=== PATIENT | female | born 1955 | race Caucasian/White ===

== ENCOUNTER 2025-02-26 08:28 | Outpatient (CLI) | payer MEDICARE, MEDICAID, SELFPAY | END 2025-02-26 08:29 | disposition home or self-care (01) | LOC: AMB 02-27 10:28 | PROVIDERS: Visit Provider Student in an Organized Health Care Education/Training Program | DX: S99.911A Unspecified injury of right ankle, initial encounter (principal); W10.9XXA Fall (on) (from) unspecified stairs and steps, initial encounter; Y92.008 Other place in unspecified non-institutional (private) residence as the place of occurrence of the external cause | CPT/HCPCS: A0425; A0429 ==

== ENCOUNTER 2025-04-03 13:55 | Outpatient (CLI) | payer MEDICARE, SELFPAY | END 2025-04-03 13:56 | disposition home or self-care (01) | PROVIDERS: Visit Provider Surgery | DX: E11.621 Type 2 diabetes mellitus with foot ulcer (principal); L97.512 Non-pressure chronic ulcer of other part of right foot with fat layer exposed; T81.31XD Disruption of external operation (surgical) wound, not elsewhere classified, subsequent encounter; E11.40 Type 2 diabetes mellitus with diabetic neuropathy, unspecified; E11.22 Type 2 diabetes mellitus with diabetic chronic kidney disease; N18.6 End stage renal disease; Z99.2 Dependence on renal dialysis | CPT/HCPCS: 87070; 97597 ==

== ENCOUNTER 2025-04-10 12:52 | Outpatient (CLI) | payer MEDICARE, SELFPAY | END 2025-04-10 12:53 | disposition home or self-care (01) | LOC: WOUND 12:52 | PROVIDERS: Visit Provider Surgery | DX: E11.621 Type 2 diabetes mellitus with foot ulcer (principal); L97.512 Non-pressure chronic ulcer of other part of right foot with fat layer exposed; T81.31XD Disruption of external operation (surgical) wound, not elsewhere classified, subsequent encounter; E11.40 Type 2 diabetes mellitus with diabetic neuropathy, unspecified; E11.22 Type 2 diabetes mellitus with diabetic chronic kidney disease; N18.6 End stage renal disease; Z99.2 Dependence on renal dialysis | CPT/HCPCS: 97597 ==

== ENCOUNTER 2025-04-17 13:14 | Outpatient (CLI) | payer MEDICARE, SELFPAY | END 2025-04-17 13:15 | disposition home or self-care (01) | LOC: WOUND 13:14 | PROVIDERS: Visit Provider Surgery | DX: E11.621 Type 2 diabetes mellitus with foot ulcer (principal); L97.512 Non-pressure chronic ulcer of other part of right foot with fat layer exposed; T81.31XD Disruption of external operation (surgical) wound, not elsewhere classified, subsequent encounter; E11.40 Type 2 diabetes mellitus with diabetic neuropathy, unspecified; E11.22 Type 2 diabetes mellitus with diabetic chronic kidney disease; N18.6 End stage renal disease; Z99.2 Dependence on renal dialysis | CPT/HCPCS: 11042 ==

== ENCOUNTER 2025-04-24 14:58 | Outpatient (CLI) | payer MEDICARE, SELFPAY | END 2025-04-24 14:59 | disposition home or self-care (01) | LOC: WOUND 14:58 | PROVIDERS: Visit Provider Surgery | DX: E11.621 Type 2 diabetes mellitus with foot ulcer (principal); L97.512 Non-pressure chronic ulcer of other part of right foot with fat layer exposed; E11.22 Type 2 diabetes mellitus with diabetic chronic kidney disease; N18.6 End stage renal disease; E11.40 Type 2 diabetes mellitus with diabetic neuropathy, unspecified; T81.31XA Disruption of external operation (surgical) wound, not elsewhere classified, initial encounter; Z99.2 Dependence on renal dialysis; Z79.4 Long term (current) use of insulin; Z98.84 Bariatric surgery status | CPT/HCPCS: 97597 ==

== ENCOUNTER 2025-04-26 10:24 | Outpatient (CLI) | payer MEDICARE, SELFPAY ==
--- NOTE | 2025-04-26 10:45 | CRLHL7_ITS ---
For Patients: As a result of the Century Cures Act, medical imaging exams and procedure reports are released immediately into your electronic medical record. You may view this report before your referring provider. If you have questions, please contact your health care provider. 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 Diabetes. Non-healing wound. Comparison: None Technique: Routine duplex arterial examination of bilateral lower extremities including 2D and spectral analysis, and color Doppler imaging was performed. Findings: In the left lower extremity there are multiphasic waveforms in the common femoral artery and profunda femoral artery. Elevated velocity within the proximal femoral artery measuring 226 cm/second with monophasic waveforms in the mid and distal femoral artery along with the popliteal artery. Absent or near absent flow within the left peroneal, posterior tibial and anterior tibial arteries. Monophasic flow within the dorsalis pedis artery. In the right lower extremity there are multiphasic waveforms within the common femoral artery and profunda femoral artery. Monophasic waveforms elsewhere. Incomplete visualization of the dorsalis pedis artery. Proximal femoral artery velocity 211 cm/second. Impression: Elevated velocity in the right proximal femoral artery. Monophasic waveforms distally. Elevated velocity in the left proximal femoral artery with monophasic waveforms distally. In addition, there is minimal flow within the left peroneal, posterior tibial and anterior tibial arteries. Dictated by Juan Manuel Medley MD @ 04/26/2025 3:35:41 PM (Electronically Signed)
== END 2025-04-26 10:25 | disposition home or self-care (01) ==
LOC: US 10:24
PROVIDERS: Visit Provider Surgery
DX: E11.621 Type 2 diabetes mellitus with foot ulcer (principal); I77.1 Stricture of artery
CPT/HCPCS: 93926

== ENCOUNTER 2025-05-01 13:04 | Outpatient (CLI) | payer MEDICARE, SELFPAY | END 2025-05-01 13:05 | disposition home or self-care (01) | LOC: WOUND 13:04 | PROVIDERS: Visit Provider Surgery | DX: T81.31XA Disruption of external operation (surgical) wound, not elsewhere classified, initial encounter (principal); E11.621 Type 2 diabetes mellitus with foot ulcer; E11.40 Type 2 diabetes mellitus with diabetic neuropathy, unspecified; I73.9 Peripheral vascular disease, unspecified; L97.512 Non-pressure chronic ulcer of other part of right foot with fat layer exposed; E11.22 Type 2 diabetes mellitus with diabetic chronic kidney disease; N18.6 End stage renal disease; Z99.2 Dependence on renal dialysis; Z79.4 Long term (current) use of insulin | CPT/HCPCS: 11042 ==

== ENCOUNTER 2025-05-08 13:12 | Outpatient (CLI) | payer MEDICARE, SELFPAY | END 2025-05-08 13:13 | disposition home or self-care (01) | LOC: WOUND 13:12 | PROVIDERS: Visit Provider Surgery | DX: I87.311 Chronic venous hypertension (idiopathic) with ulcer of right lower extremity (principal); I73.9 Peripheral vascular disease, unspecified; L97.318 Non-pressure chronic ulcer of right ankle with other specified severity; L97.312 Non-pressure chronic ulcer of right ankle with fat layer exposed; E11.621 Type 2 diabetes mellitus with foot ulcer; E11.40 Type 2 diabetes mellitus with diabetic neuropathy, unspecified; L97.512 Non-pressure chronic ulcer of other part of right foot with fat layer exposed; E11.22 Type 2 diabetes mellitus with diabetic chronic kidney disease; N18.6 End stage renal disease | CPT/HCPCS: 11042 ==

== ENCOUNTER 2025-05-15 13:12 | Outpatient (CLI) | payer MEDICARE, SELFPAY | END 2025-05-15 13:13 | disposition home or self-care (01) | LOC: WOUND 13:12 | PROVIDERS: Visit Provider Surgery | DX: I70.233 Atherosclerosis of native arteries of right leg with ulceration of ankle (principal); L97.318 Non-pressure chronic ulcer of right ankle with other specified severity; L97.312 Non-pressure chronic ulcer of right ankle with fat layer exposed; E11.621 Type 2 diabetes mellitus with foot ulcer; E11.40 Type 2 diabetes mellitus with diabetic neuropathy, unspecified; L97.512 Non-pressure chronic ulcer of other part of right foot with fat layer exposed; E11.22 Type 2 diabetes mellitus with diabetic chronic kidney disease; N18.6 End stage renal disease; Z99.2 Dependence on renal dialysis; Z79.4 Long term (current) use of insulin | CPT/HCPCS: 11042; 97597 ==